=== PATIENT | female | born 2000 | race Caucasian/White ===

== ENCOUNTER 2025-02-19 12:25 | Emergency (ER) | payer MEDICAID, SELFPAY ==
[2025-02-19 12:27] VITALS: BMI 32.3
--- NOTE | 2025-02-19 12:53 | XR_ITS ---
Examination: Abdomen sonogram, Limited Date and time of exam: February 19, 2025 1308 hours INDICATIONS: Upper abdominal pain 2 years Technique: Real-time clinton scale transabdominal sonographic images of the upper abdomen obtained. Findings: Normal gallbladder. Common bile duct 0.6 cm no definite stones Pancreatic head 1.1 cm Liver 13.3 cm fatty infiltration Normal hepatopedal portal venous flow Patent IVC IMPRESSION: Abnormally enlarged common bile duct, consider MRCP follow-up
[2025-02-19 12:54] VITALS: BP 112/69; PULSE 69; RESP 18; TEMP 36.9; O2SAT 98
[2025-02-19 13:21] LABS: Collection Type, Urine Clean Catch
[2025-02-19 13:30] LABS: Basophils # (Auto) 0.0 Thou/mm3 (0.0-0.2); Basophils % (Auto) 0 % (0-2.5); Eosinophils # (Auto) 0.1 Thou/mm3 (0.0-0.5); Eosinophils % (Auto) 2 % (0-10); Hematocrit 40.0 % (36.0-46.0); Hemoglobin 14.1 g/dL (12.0-16.0); Immature Granulocytes Auto 0.02 Thou/mm3 (0.00-0.00); Lymphocytes # (Auto) 1.8 Thou/mm3 (1.0-4.8); Lymphocytes % (Auto) 23 % (10-50); Mean Corpuscular HGB Conc 35.3 g/dl (31.0-37.0); Mean Corpuscular Hemoglobin 29.7 pg (25.0-35.0); Mean Corpuscular Volume 84 fL (80-100); Monocytes # (Auto) 0.6 Thou/mm3 (0.0-0.8); Monocytes % (Auto) 8 % (0-12); Neutrophils # (Auto) 5.4 Thou/mm3 (1.8-7.7); Neutrophils % (Auto) 68 % (37-80); Nucleated Red Blood Cell # 0.00 Thou/mm3 (0.00-0.00); Nucleated Red Blood Cell % 0 /100 WBC (0); Platelet Count 310 Thou/mm3 (140-440); RDW Standard Deviation 37.9 fL (36.4-46.3); Red Blood Count 4.75 Miln/mm3 (4.00-5.20); White Blood Count 8.0 Thou/mm3 (3.6-11.0)
[2025-02-19 13:40] LABS: Bilirubin,Urine Negative (Negative); Blood,Urine Negative (Negative); Clarity,Urine Clear (Clear/Hazy); Color,Urine Lt-Yellow (Lt Yel-Yel); Glucose, Urine Negative (Negative); Ketones,Urine Negative (Negative); Leukocyte Esterase,Urine Negative (Negative); Nitrite,Urine Negative (Negative); PH,Urine 6.5 (5.0-7.0); Protein,Urine Negative (Neg - Trace); RBC,Urine 1 /hpf (0-3); Specific Gravity,Urine 1.023 (1.001-1.035); Squamous Epithelial Cell,Urine 2 /hpf (0-5); Urobilinogen,Urine Negative mg/dL (0.0-1.0); WBC,Urine 1 /hpf (0-5)
[2025-02-19 13:41] LABS: Anion Gap 9 (7-16); Aspartate Amino Transferase 22 U/L (0-34); BUN/Creatinine Ratio 9 Ratio (12-20); Bilirubin,Total 0.5 mg/dL (0.3-1.2); Blood Urea Nitrogen 7 mg/dL (9-23); Calcium 9.7 mg/dL (8.3-10.6); Carbon Dioxide 26.9 mMol/L (20.0-31.0); Chloride 104 mMol/L (98-107); Creatinine (Component) 0.8 mg/dL (0.6-1.3); Estimated Creatinine Clearance 106.4 mL/min (>60); Glucose 87 mg/dL (74-106); Osmolality,Calculated 276 (275-295); Potassium 4.1 mMol/L (3.4-5.1); Sodium 140 mMol/L (136-145); eGFR > 60 See Note
[2025-02-19 13:42] LABS: Alanine Aminotransferase 26 U/L (10-49); Albumin, Serum 4.5 gm/dL (3.5-5.0); Albumin/Globulin Ratio 1.9 (1.2-2.2); Alkaline Phosphatase 106 U/L (46-116); Calcium (Corrected) 9.7 mg/dL (8.5-10.1); Globulin 2.4 gm/dL (2.3-3.5); Lipase 25 U/L (12-53); Total Protein 6.9 gm/dL (5.7-8.2)
[2025-02-19 13:54] LABS: HCG Qualitative,Urine Negative
--- NOTE | 2025-02-19 14:15 | XR_ITS ---
Examination: CT abdomen with intravenous contrast CT pelvis with intravenous contrast 2-D coronal reconstructions 2-D sagittal reconstructions Date and time of exam:February 19, 2025, 1619 hours INDICATIONS: Generalized abdominal pain beginning 2 years ago CTDI: vol (mGy) 9.66 DLP: (mGycm) 531 Technique: Multiple axial sections of the abdomen and pelvis have been obtained. 64 slice high-resolution scanner used. 3 mm axial sections have been obtained, post intravenous injection 60 cc Isovue 370 2-D sagittal, coronal reconstructions obtained. Low dose protocols were performed. One or more of the following dose reduction techniques were used; automated exposure control, adjustment of the mA and/or KV according to patient size, use of iterative reconstruction technique. Findings: No focal liver or splenic lesion No gallstones No pancreatic or adrenal mass 3 mm left renal calculus, no hydronephrosis Fat-containing umbilical hernia Normal appendix Retroverted uterus with intrauterine device, one of the limbs of the intrauterine device projects at the surface of the uterus posteriorly image 185 Urinary bladder intact 2 mm calcified L5-S1 disc IMPRESSION: Recommend pelvic sonography follow-up to confirm abnormal position of the intrauterine device, partly in the myometrium 3 mm left renal calculus
--- NOTE | 2025-02-19 16:54 | EDNOTE_ITS ---
ED Abdominal Pain RME/HPI General Chief Complaint: Abdominal Pain Stated complaint: UPPER ABD PAIN W/ VOMITING, DIZZY, FATIGUED Time seen by provider: 02/19/25 12:32 Arrival date/time: 02/19/25 12:25 This is a case of 34-year-old female with history of gastritis came in in the emergency room due to bilateral upper abdominal pain on and off for 2 days associated with nausea vomiting dizziness and fatigue worsening of the symptoms this patient decided to sought consult here in the emergency room Limitations: no limitations Related Data Previous Rx's ?Medication ?Instructions ?Recorded famotidine 20 mg tablet (Pepcid) 20 mg PO BID 30 days #60 tabs 02/19/25 omeprazole 40 mg capsule,delayed 40 mg PO QDAY 30 days #30 caps 02/19/25 release ondansetron 4 mg disintegrating 4 mg PO Q8H PRN nausea and 02/19/25 tablet vomiting #20 tabs Allergies Allergy/AdvReac Type Severity Reaction Status Date / Time No Known Allergies Allergy Verified 02/19/25 12:29 Review of Systems Review of Systems Systems Reviewed: All systems reviewed, normal except as documented Constitutional Constitutional: Reports system reviewed and no additional complaints, except as documented, Reports as per HPI, Denies chills, Denies fatigue and Denies fever(s) Cardiovascular Cardiovascular: Reports system reviewed and no additional complaints, except as documented, Reports as per HPI, Denies chest pain, Denies dyspnea and Denies rapid heart rate Respiratory Respiratory: Reports system reviewed and no additional complaints, except as documented, Reports as per HPI, Denies cough and Denies dyspnea Gastrointestinal Gastrointestinal: Reports system reviewed and no additional complaints, except as documented, Reports abdominal pain, Denies diarrhea, Reports nausea and Reports vomiting Musculoskeletal Musculoskeletal: Reports system reviewed and no additional complaints, except as documented and Reports as per HPI Neurologic Neurologic: Reports system reviewed and no additional complaints, except as documented and Reports as per HPI Endocrine Endocrine: Denies fatigue Past Medical History Past Medical History CARDIAC: Negative Cardiac Disorders RESPIRATORY: Negative Asthma GENITOURINARY: Negative Renal Disease ENDOCRINE: Negative Diabetes Mellitus Type 2 HEMATOLOGIC: Negative Sickle Cell Disease Social History SMOKING STATUS: Former smoker ED Exam General Limitations: Present no limitations General appearance: Present alert, in no apparent distress and other (Patient is awake alert oriented not in distress nontoxic looking well-hydrated well- nourished) Head Head exam: Present atraumatic, normocephalic and normal inspection Eye Eye exam: Present normal appearance, PERRL and EOMI ENT ENT exam: Present normal exam, normal oropharynx and mucous membranes moist Neck Neck exam: Present normal inspection, full ROM and trachea midline Chest Chest inspection: Present normal inspection and symmetric chest wall rise; Absent tenderness Respiratory Respiratory exam: Present normal lung sounds bilaterally; Absent respiratory distress, wheezes, stridor, accessory muscle use or prolonged expiratory phase Cardiovascular Cardiovascular exam: Present regular rate, normal rhythm and normal heart sounds; Absent bradycardia, tachycardia, irregular rhythm, systolic murmur or diastolic murmur Abdominal Exam Abdominal exam: Present soft, tenderness (Mild tenderness on the both upper and left upper abdomen and epigastric area no CVA tenderness) and normal bowel sounds; Absent distention, guarding, rebound, rigidity, diminished bowel sounds, hyperactive bowel sounds, hypoactive bowel sounds, organomegaly, psoas sign, obturator sign, Natarajan's sign, Rovsing's sign, tenderness at McBurney's Point or hernia Abdominal tenderness: Present RUQ, LUQ, epigastrium and mild Extremities Exam Extremities exam: Present normal inspection and full ROM Back Exam Back exam: Present normal inspection and full ROM Neurological Exam Neurological exam: Present alert, oriented X3, CN II-XII intact, normal gait and reflexes normal; Absent motor sensory deficit Psychiatric Psychiatric exam: Present normal affect and normal mood Skin Skin exam: Present warm, dry, intact and normal color Course Quality Measures none Orders Category Date Time Status CT Screening NOW Care 02/19/25 14:[address] abdomen pelvis w con Stat Exams 02/19/25 14:15 Completed US gall bladder Stat Exams 02/19/25 12:53 Completed US pelvic complete Stat Exams 02/19/25 17:46 Completed Amylase Stat Lab 02/19/25 14:30 Received CBC Stat Lab 02/19/25 12:57 Completed Comprehensive Metabolic Panel Stat Lab 02/19/25 12:57 Completed HCG Qualitative,Urine Stat Lab 02/19/25 13:11 Completed Lipase Stat Lab 02/19/25 12:57 Completed Urinalysis Stat Lab 02/19/25 13:11 Completed Morphine Inj Med 02/19/25 17:44 Active 4 mg IVP Q30M PRN Ondansetron Inj [Zofran Inj] Med 02/19/25 17:44 Discontinued 4 mg IVP X1 ONE Pantoprazole Inj [Protonix Inj] Med 02/19/25 17:44 Discontinued 40 mg IVP X1 ONE Sodium Chloride 0.9% 1000 ml [Ns] 1,000 ml Med 02/19/25 17:44 Discontinued IV 999 mls/hr Vital Signs Vital signs: Vital Signs Temperature 98.5 F 02/19/25 12:54 Pulse Rate 69 02/19/25 12:54 Respiratory Rate 18 02/19/25 12:54 Blood Pressure 112/69 02/19/25 12:54 Pulse Oximetry (%) 98 02/19/25 12:54 Oxygen Delivery Method Room Air 02/19/25 12:54 Patient is afebrile not tachycardic not tachypneic BP stable not hypoxic oxygen saturation is 98% in room air Abdominal Pain MDM MDM Narrative MDM Narrative:: This is a case of 34-year-old female with history of gastritis came in in the emergency room due to bilateral upper abdominal pain on and off for 2 days associated with nausea vomiting dizziness and fatigue worsening of the symptoms this patient decided to sought consult here in the emergency room physical examination patient is awake alert oriented not in distress nontoxic looking vital signs stable BP stable not tachycardic not tachypneic not hypoxic and afebrile patient lung sound is clear no crackles no rales no retraction no stridor heart normal rate regular rhythm no murmur abdominal exam benign nonsurgical mild tenderness on both upper abdomen and epigastric area no guarding no rebound no rigidity negative psoas negative straight or negative Rovsing's negative McBurney's negative Natarajan sign negative CVA tenderness initially patient ultrasound of the gallbladder showed no gallstones but possible distended common bile duct suggesting MRCP I spoke to Dr. Fernandez ordered today to perform CT scan of the abdomen pelvis and the test were normal thus Dr. Fernandez at this time instructed that there is no indication to admit the patient patient will just follow-up with his clinic for further evaluation and treatment patient blood test showed no leukocytosis no anemia kidney and liver function is normal no electrolyte imbalance urinalysis is normal lipase normal patient CT scan showed a kidney stone and umbilical hernia and possible mild placement of the IUD ultrasound of the pelvic is also normal at this point patient was given a bolus of normal saline morphine Zofran and Protonix patient symptoms was resolved thus patient will be discharged home with stable condition patient was advised to see an OB sign hanger for her to check the placement of the IUD and to see urologist for kidney stone she is also well-informed for any worsening symptoms or any emergent concerns she will return in the emergency room immediately or call 911 Patient was discharged with comfortable condition walking with stable gait. Patient verbalized no further complains explained diagnosis and answered patient question. Patient is comfortable with the proposed management plan including the need to follow up with his/her primary care physician and any specialist if applicable Discussed patient for any urgent condition or worsening sx, He/She needed to go to emergency room immediately or call 911. Patient acknowledge the responsibility to follow up as instructed and to monitor her/his symptoms. For any persistence of the symptoms for more than 3-5 days return precaution advised. Discussed the result of the test and was given printed discharge instruction Patient data External records reviewed:: [facility] previous records Clinical information provided by:: patient Social determinants that could affect healthcare access:: none Patient has the following chronic illnesses:: None How is presenting disease/condition affected by chronic disease/condition?: no chronic disease Evaluation data The following diagnostics were reviewed and interpreted by me:: lab results and radiology exam(s) Lab and/or radiology exams considered but not ordered:: Reviewed Interpretation Summary: Reviewed Medications / Prescriptions Medications or Prescriptions considered but not ordered:: Given Medication administrations:: Medication Administration History Morphine Sulfate (Morphine Sulf Inj 10 Mg/Ml Vial) 4 mg IVP Q30M PRN PRN Reason: ABDOMINAL CRAMPING Stop: 02/22/25 17:43 Last Admin: 02/19/25 18:23 Dose: 4 mg Documented By: ARF Discontinued Medications Sodium Chloride (Ns) 1,000 mls @ 999 mls/hr IV .Q1H1M ONE Stop: 02/19/25 18:44 Last Infusion: 02/19/25 19:36 Dose: Infused Documented By: Admin: 02/19/25 18:22 Dose: 999 mls/hr Documented By: ARF Ondansetron HCl (Ondansetron Inj 2 Mg/Ml Inj 2 Ml) 4 mg IVP X1 ONE; Protocol Stop: 02/19/25 17:45 Last Admin: 02/19/25 18:23 Dose: 4 mg Documented By: ARF Pantoprazole Sodium (Pantoprazole Inj 40 Mg Vial) 40 mg IVP X1 ONE Stop: 02/19/25 17:45 Last Admin: 02/19/25 18:23 Dose: 40 mg Documented By: ARF Given Consultations Consultation(s) initiated? (list below): Yes Consultation #1 (Physician, Specialty, Details): Dr. Fernandez CT scan was ordered and was normal since the vital signs is normal patient is pain-free patient is not jaundiced no nausea no vomiting patient CT scan is normal patient will follow-up with his clinic for reevaluation and p ossible MRCP as an outpatient Diagnosis Differential diagnosis abdominal pain: abdominal pain, acute appendicitis, calculus of kidney, diverticulitis, gastroenteritis, pancreatitis and other (Cholelithiasis nephrolithiasis) Most likely diagnosis given after review of the tests above:: Nephrolithiasis umbilical hernia Admission Indicated Admission indicated?: not indicated Explain why admission is indicated or not indicated:: Not indicated Admission Request Was there a request for admission?: No Disposition Plan Disposition Plan: Discharge Discharge Attestation Discharge Attestation: The patient and all family members were given an opportunity to ask questions and understood the discharge instructions. Discharge instructions specifically effects, indications for sooner follow up or return to the emergency department, and the expected course of current diagnosis. Patient condition: Stable Discharge Plan Plan Patient Disposition: HOME (Self Care) Patient condition on transfer: Stable Prescriptions/Referrals Prescriptions/Med Rec: New omeprazole 40 mg capsule,delayed release(DR/EC) 40 mg PO QDAY 30 Days Qty: 30 0RF famotidine [Pepcid] 20 mg tablet 20 mg PO BID 30 Days Qty: 60 0RF ondansetron 4 mg tablet,disintegrating 4 mg PO Q8H PRN (Reason: nausea and vomiting) Qty: 20 0RF Referrals: Etelvina Siddiqui FNP-C [Primary Care Provider] - In 1 week Problem List Clinical Impression: Abdominal pain, Nephrolithiasis, Gastritis, Hernia, umbilical Patient/Caregiver Discharge Instructions Education Materials: Abdominal Pain, Kidney Stones Your Evaluation, ED Gastritis (Adult), ED Hernia (Adult) Additional Instructions: Follow-up with your primary care physician in 2 days for reevaluation and to be referred to marketing regional consultant for further evaluation and treatment of your gastritis and possible further evaluation of your common bile duct possible MRCP and further evaluation of your umbilical hernia you need also to be referred to urologist for further evaluation and treatment of your kidney stone you need also to see [facility] for your placement of your IUD worsening symptoms persistent recurrent of the symptoms return to the emergency room immediately or call 911 increase water intake keep hydrated spatulate Gatorade for every vomiting avoid spicy food avoid skipping of meals avoid fat fried high cholesterol food avoid coffee soda alcohol Print Language: Latvian Stand Alone Forms: [employer] Award Info., Patient Portal Info Letter PA/EQUIPMENT OPERATION INSTRUCTOR Supervising Physician PA/EQUIPMENT OPERATION INSTRUCTOR Supervising Physician: DR fay
[2025-02-19 17:08] VITALS: BP 109/71; PULSE 68; RESP 18; TEMP 37; O2SAT 99
--- NOTE | 2025-02-19 17:46 | XR_ITS ---
Examination: Pelvic ultrasound, transabdominal, complete Technique: Transabdominal ultrasound of the pelvis performed using grayscale imaging Date and time of exam: February 19, 2021, 1933 hours INDICATIONS: Vaginal bleeding and pelvic cramping today FINDINGS: Uterus 13.9 cm endometrial stipe 0.3 cm No uterine mass or intrauterine gestation Right ovary obscured by bowel gas Left ovary 2.7 cm arterial flow IMPRESSION: No uterine mass or intrauterine gestation
[2025-02-19] MEDS: SODIUM CHLORIDE 0.9% 1000 ML 1,000 ML 999 ML IV (18:22)
[2025-02-19] MEDS: ONDANSETRON INJ 2 MG/ML INJ 2 ML 4 MG IVP (18:23)
[2025-02-19] MEDS: MORPHINE SULF INJ 10 MG/ML VIAL 4 MG IVP (18:23)
[2025-02-19 22:16] VITALS: RESP 18; O2SAT 99
[2025-02-21 07:35] LABS: Amylase 84 U/L (30-118)
== END 2025-02-19 22:17 | disposition home or self-care (01) ==
PROVIDERS: Nurse Practitioner Family; Emergency Provider Emergency Medicine
DX: K29.70 Gastritis, unspecified, without bleeding (principal); N20.0 Calculus of kidney; K42.9 Umbilical hernia without obstruction or gangrene
CPT/HCPCS: 36415; 74177; 76705; 76856; 80053; 81001; 81025; 82150; 83690; 85025; 96361; 96374; 96375; 99284; A4649; J2270; J2405; J2470; J7030; Q9967

== ENCOUNTER 2025-06-08 08:47 | Emergency (ER) | payer MEDICAID, SELFPAY ==
[2025-06-08 08:48] VITALS: BP 135/89; PULSE 84; RESP 20; TEMP 36.6; O2SAT 98; BMI 34.4
[2025-06-08 08:56] VITALS: PULSE 72; RESP 20; O2SAT 98
--- NOTE | 2025-06-08 09:09 | EKG_ITS ---
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
--- NOTE | 2025-06-08 09:11 | XR_ITS ---
Examination: CT abdomen and pelvis without contrast. Coronal 3-D reconstructions. Sagittal 2-D reconstructions. Date and time of exam: 06/08/2025 at 12:56 p.m. INDICATION: Generalized abdominal pain with nausea COMPARISON: CT abdomen and pelvis 02/19/2025 CTDI: vol (mGy): 10.7 DLP: (mGycm): 609 Technique: Axial images of the abdomen have been obtained, 3 mm slice thickness Intravenous contrast material has not been administered. Low dose protocols were performed. One or more of the following dose reduction techniques were used; automated exposure control, adjustment of the mA and/or KV according to patient size, use of iterative reconstruction technique. Findings: FINDINGS: Lack of intravenous contrast limits evaluation of solid organs, vasculature, and lymph nodes. Lower thorax: No pleural effusions. No airspace consolidation. Minimal bibasilar dependent subsegmental atelectasis. Heart size is within normal limits. Liver: No significant hepatic enlargement. No gross liver mass. Biliary system: No calcified gallstones or findings concerning for acute cholecystitis or biliary ductal obstruction. Spleen: Within normal limits of size. No discrete mass. Pancreas: No contour deforming mass or overt main pancreatic duct dilatation. No evidence for acute inflammation. Adrenal glands: No significant findings. Kidneys: No contour-deforming solid mass. No calculi or hydronephrosis. Bladder: Suboptimal assessment due to under distention but no calculus is seen. Pelvic organs: Retroverted uterus with malpositioned IUD, penetrating the myometrium superiorly and inferiorly along the midline, most pronounced inferiorly with the IUD arm projecting into the adjacent fat. No regional fluid collection. Unremarkable ovaries. Bowel/Peritoneal cavity: Limited assessment without IV and oral contrast as well as segments of underdistention. No contour deforming mass. Nonspecific mild dilatation of small bowel in the left upper quadrant with gas-liquid levels. No evidence for appendicitis. No ascites or free air. No concerning peritoneal thickening. Lymph nodes/retroperitoneum: No pathologically enlarged lymph nodes or other masses. No hematoma or other abnormal collections. Vessels: Normal caliber abdominal aorta. Compression of the left common iliac vein between the right common iliac artery and underlying vertebra noted, compatible with May-Thurner syndrome. Abdominal/Pelvic wall: Very small fat-containing umbilical hernia noted. Musculoskeletal: No recent fractures or tumor suspicious lytic or blastic lesions. Mild dextroscoliosis. IMPRESSION: Nonspecific mild small bowel distention with gas-liquid levels in the left upper quadrant could be due to a mild enteritis or gastroenteritis. No evidence for appendicitis, colitis or bowel obstruction. Retroverted uterus with malpositioned IUD, penetrating the myometrium superiorly and inferiorly along the midline, most pronounced inferiorly with the IUD arm projecting into the adjacent fat. No regional fluid collection. May-Thurner syndrome.
[2025-06-08 09:20] LABS: Basophils # (Auto) 0.0 Thou/mm3 (0.0-0.2); Basophils % (Auto) 0 % (0-2.5); Eosinophils # (Auto) 0.3 Thou/mm3 (0.0-0.5); Eosinophils % (Auto) 5 % (0-10); Hematocrit 41.3 % (36.0-46.0); Hemoglobin 14.2 g/dL (12.0-16.0); Immature Granulocytes Auto 0.02 Thou/mm3 (0.00-0.00); Lymphocytes # (Auto) 2.0 Thou/mm3 (1.0-4.8); Lymphocytes % (Auto) 30 % (10-50); Mean Corpuscular HGB Conc 34.4 g/dl (31.0-37.0); Mean Corpuscular Hemoglobin 29.6 pg (25.0-35.0); Mean Corpuscular Volume 86 fL (80-100); Monocytes # (Auto) 0.5 Thou/mm3 (0.0-0.8); Monocytes % (Auto) 8 % (0-12); Neutrophils # (Auto) 3.8 Thou/mm3 (1.8-7.7); Neutrophils % (Auto) 57 % (37-80); Nucleated Red Blood Cell # 0.00 Thou/mm3 (0.00-0.00); Nucleated Red Blood Cell % 0 /100 WBC (0); Platelet Count 310 Thou/mm3 (140-440); RDW Standard Deviation 39.7 fL (36.4-46.3); Red Blood Count 4.79 Miln/mm3 (4.00-5.20); White Blood Count 6.7 Thou/mm3 (3.6-11.0)
[2025-06-08 09:32] LABS: INR 1.0 (0.9-1.3); Partial Thromboplastin Time 30.2 Seconds (22.0-36.0); Prothrombin Time 11.1 Seconds (9.0-12.2)
[2025-06-08 09:41] LABS: Alanine Aminotransferase 14 U/L (10-49); Albumin, Serum 5.0 gm/dL (3.5-5.0); Albumin/Globulin Ratio 2.6 (1.2-2.2); Alkaline Phosphatase 107 U/L (46-116); Anion Gap 9 (7-16); Aspartate Amino Transferase 19 U/L (0-34); BUN/Creatinine Ratio 12 Ratio (12-20); Bilirubin,Total 0.6 mg/dL (0.3-1.2); Blood Urea Nitrogen 11 mg/dL (9-23); Calcium 9.1 mg/dL (8.3-10.6); Calcium (Corrected) 9.1 mg/dL (8.5-10.1); Carbon Dioxide 25.8 mMol/L (20.0-31.0); Chloride 104 mMol/L (98-107); Creatinine (Component) 0.9 mg/dL (0.6-1.3); Estimated Creatinine Clearance 97.6 mL/min (>60); Globulin 1.9 gm/dL (2.3-3.5); Glucose 96 mg/dL (74-106); Osmolality,Calculated 276 (275-295); Potassium 3.7 mMol/L (3.4-5.1); Sodium 139 mMol/L (136-145); Total Protein 6.9 gm/dL (5.7-8.2); eGFR > 60 See Note
[2025-06-08] MEDS: MORPHINE SULF INJ 4 MG/ML VIAL IVP (09:42)
[2025-06-08] MEDS: ONDANSETRON INJ 2 MG/ML INJ 2 ML 4 MG IVP (09:42)
[2025-06-08] MEDS: KETOROLAC INJ 30 MG/ML VIAL 15 MG IVP (09:43)
[2025-06-08] MEDS: SODIUM CHLORIDE 0.9% 1000 ML 1,000 ML 999 ML IV (09:43)
[2025-06-08 09:44] VITALS: BP 117/83; PULSE 55; PULSE 59; RESP 16; O2SAT 98
[2025-06-08 11:17] VITALS: BP 104/65; PULSE 69; RESP 19; TEMP 36.9; O2SAT 99
--- NOTE | 2025-06-08 11:46 | PD.EDABDPN ---
ED Abdominal Pain RME/HPI General Chief Complaint: Abdominal Pain Stated complaint: ABDOMINAL PAIN Time seen by provider: 06/08/25 08:52 Arrival date/time: 06/08/25 08:47 Limitations: no limitations RME / HPI RME / HPI narrative: 24 year old female with history of gastritis and kidney stones otherwise no other stated medical history presents to the ED BIBA from home for evaluation of abdominal pain beginning at 08:00 AM today. Described as aching in sensation that is located most to the left flank area, rating 9/10 in severity. No nausea or vomiting reported. Denies fevers, chills, chest pain, cough, diarrhea, or urinary symptoms. Related Data Previous Rx's ?Medication ?Instructions ?Recorded ondansetron 4 mg disintegrating 4 mg PO Q8H PRN nausea and 02/19/25 tablet vomiting #20 tabs Allergies Allergy/AdvReac Type Severity Reaction Status Date / Time No Known Allergies Allergy Verified 02/19/25 12:29 Review of Systems Review of Systems Systems Reviewed: All systems reviewed, normal except as documented Past Medical History Past Medical History GASTROINTESTINAL: Positive Gastrointestinal Disorders GENITOURINARY: Positive Kidney Stones Social History SMOKING STATUS: Never smoker ED Exam General Limitations: Present no limitations General appearance: Present alert, obese and other (slightly tearful ) Head Head exam: Present atraumatic Eye Eye exam: Present normal appearance, PERRL and EOMI ENT ENT exam: Present normal exam, normal oropharynx and mucous membranes moist Neck Neck exam: Present normal inspection, full ROM and trachea midline Chest Chest inspection: Present normal inspection and symmetric chest wall rise Respiratory Respiratory exam: Present normal lung sounds bilaterally Cardiovascular Cardiovascular exam: Present regular rate, normal rhythm and normal heart sounds Abdominal Exam Abdominal exam: Present soft and normal bowel sounds; Absent distention, tenderness, guarding, rebound, rigidity or mass Extremities Exam Extremities exam: Present normal inspection and full ROM Back Exam Back exam: Present normal inspection and full ROM Neurological Exam Neurological exam: Present alert, oriented X3 and CN II-XII intact Psychiatric Psychiatric exam: Present other (tearful ) Skin Skin exam: Present warm, dry, intact and normal color Course Quality Measures none Orders Category Date Time Status Sales/Marketing NOW Care 06/08/25 09:09 Completed Continuous Pulse Oximetry NOW Care 06/08/25 09:09 Completed EKG (ED ONLY) *Do not use* NOW Care 06/08/25 09:09 Completed Insert IV NOW Care 06/08/25 09:[address] abdomen pelvis wo con Stat Exams 06/08/25 09:11 Completed EKG (ED Only) Stat Exams 06/08/25 09:09 Draft CBC Stat Lab 06/08/25 08:36 Completed Comprehensive Metabolic Panel Stat Lab 06/08/25 08:36 Completed HCG Qualitative,Urine Stat Lab 06/08/25 12:37 Completed HCG,Qualitative Serum Stat Lab 06/08/25 08:56 Completed Partial Thromboplastin Time Stat Lab 06/08/25 08:36 Completed Prothrombin Time with INR Stat Lab 06/08/25 08:36 Completed Urinalysis, C/S if Indicated Stat Lab 06/08/25 12:37 Completed Ketorolac Inj [Toradol Inj] Med 06/08/25 09:12 Discontinued 15 mg IVP X1 ONE Morphine* Inj Med 06/08/25 09:06 Discontinued 4 mg IVP X1 ONE Ondansetron Inj [Zofran Inj] Med 06/08/25 09:06 Discontinued 4 mg IVP X1 ONE Sodium Chloride 0.9% 1000 ml [Ns] 1,000 ml Med 06/08/25 09:06 Discontinued IV 999 mls/hr Vital Signs Vital signs: Vital Signs Temperature 97.8 F 06/08/25 08:48 Pulse Rate 84 06/08/25 08:48 Respiratory Rate 20 06/08/25 08:48 Blood Pressure 135/89 H 06/08/25 08:48 Pulse Oximetry (%) 98 06/08/25 08:48 Oxygen Delivery Method Room Air 06/08/25 08:48 Pulse ox is 98% on room air which is adequate. Abdominal Pain MDM MDM Narrative MDM Narrative:: Raven Babin am scribing for and in the presence of Dr. Olsen. Patient data External records reviewed:: [facility] previous records and EMS form Clinical information provided by:: patient and EMS Social determinants that could affect healthcare access:: none Patient has the following chronic illnesses:: Gastritis Kidney stones How is presenting disease/condition affected by chronic disease/condition?: exacerbated by Evaluation data The following diagnostics were reviewed and interpreted by me:: lab results, radiology exam(s) and EKG tracing(s) (EKG @ 11:41 AM. Normal sinus rhythm, rate 62, no STEMI. ) Lab and/or radiology exams considered but not ordered:: None Interpretation Summary: Ordering Physician: Xu Olsen MD Date of Service: 06/08/25 Procedure(s): CT abdomen pelvis wo con Accession Number(s): [id number] cc: Xu Olsen MD; Bar Navas MD; Kenyon Lyle DO~ Examination: CT abdomen and pelvis without contrast. Coronal 3-D reconstructions. Sagittal 2-D reconstructions. Date and time of exam: 06/08/2025 at 12:56 p.m. INDICATION: Generalized abdominal pain with nausea COMPARISON: CT abdomen and pelvis 02/19/2025 CTDI: vol (mGy): 10.7 DLP: (mGycm): 609 Technique: Axial images of the abdomen have been obtained, 3 mm slice thickness Intravenous contrast material has not been administered. Low dose protocols were performed. One or more of the following dose reduction techniques were used; automated exposure control, adjustment of the mA and/or KV according to patient size, use of iterative reconstruction technique. Findings: FINDINGS: Lack of intravenous contrast limits evaluation of solid organs, vasculature, and lymph nodes. Lower thorax: No pleural effusions. No airspace consolidation. Minimal bibasilar dependent subsegmental atelectasis. Heart size is within normal limits. Liver: No significant hepatic enlargement. No gross liver mass. Biliary system: No calcified gallstones or findings concerning for acute cholecystitis or biliary ductal obstruction. Spleen: Within normal limits of size. No discrete mass. Pancreas: No contour deforming mass or overt main pancreatic duct dilatation. No evidence for acute inflammation. Adrenal glands: No significant findings. Kidneys: No contour-deforming solid mass. No calculi or hydronephrosis. Bladder: Suboptimal assessment due to under distention but no calculus is seen. Pelvic organs: Retroverted uterus with malpositioned IUD, penetrating the myometrium superiorly and inferiorly along the midline, most pronounced inferiorly with the IUD arm projecting into the adjacent fat. No regional fluid collection. Unremarkable ovaries. Bowel/Peritoneal cavity: Limited assessment without IV and oral contrast as well as segments of underdistention. No contour deforming mass. Nonspecific mild dilatation of small bowel in the left upper quadrant with gas-liquid levels. No evidence for appendicitis. No ascites or free air. No concerning peritoneal thickening. Lymph nodes/retroperitoneum: No pathologically enlarged lymph nodes or other masses. No hematoma or other abnormal collections. Vessels: Normal caliber abdominal aorta. Compression of the left common iliac vein between the right common iliac artery and underlying vertebra noted, compatible with May-Thurner syndrome. Abdominal/Pelvic wall: Very small fat-containing umbilical hernia noted. Musculoskeletal: No recent fractures or tumor suspicious lytic or blastic lesions. Mild dextroscoliosis. IMPRESSION: Nonspecific mild small bowel distention with gas-liquid levels in the left upper quadrant could be due to a mild enteritis or gastroenteritis. No evidence for appendicitis, colitis or bowel obstruction. Retroverted uterus with malpositioned IUD, penetrating the myometrium superiorly and inferiorly along the midline, most pronounced inferiorly with the IUD arm projecting into the adjacent fat. No regional fluid collection. May-Thurner syndrome. Dictated By: Kenyon Lyle DO Signed By: <Electronically signed by Kenyon Lyle DO in [place]> 06/08/25 1402 Medications / Prescriptions Medications or Prescriptions considered but not ordered:: None Medication administrations:: Medication Administration History Discontinued Medications Sodium Chloride (Ns) 1,000 mls @ 999 mls/hr IV .Q1H1M ONE Stop: 06/08/25 10:06 Last Infusion: 06/08/25 10:44 Dose: Infused Documented By: Admin: 06/08/25 09:43 Dose: 999 mls/hr Documented By: VERONICA Ketorolac Tromethamine (Ketorolac Inj 30 Mg/Ml Vial) 15 mg IVP X1 ONE Stop: 06/08/25 09:13 Last Admin: 06/08/25 09:43 Dose: 15 mg Documented By: VERONICA Morphine Sulfate (Morphine Sulf Inj 4 Mg/Ml Vial) 4 mg IVP X1 ONE Stop: 06/08/25 09:07 Last Admin: 06/08/25 09:42 Dose: 4 mg Documented By: VERONICA Ondansetron HCl (Ondansetron Inj 2 Mg/Ml Inj 2 Ml) 4 mg IVP X1 ONE; Protocol Stop: 06/08/25 09:07 Last Admin: 06/08/25 09:42 Dose: 4 mg Documented By: VERONICA See above Consultations Consultation(s) initiated? (list below): No Diagnosis Differential diagnosis abdominal pain: abdominal pain, calculus of kidney, gastroenteritis and other (gastritis ) Most likely diagnosis given after review of the tests above:: Ileus Admission Indicated Admission indicated?: not indicated Explain why admission is indicated or not indicated:: With no condition needing emergent intervention, there was no indication for admission. Admission Request Was there a request for admission?: No Disposition Plan Disposition Plan: Discharge Discharge Attestation Discharge Attestation: The patient and all family members were given an opportunity to ask questions and understood the discharge instructions. Discharge instructions specifically effects, indications for sooner follow up or return to the emergency department, and the expected course of current diagnosis. Patient condition: Stable Discharge Plan Plan Patient Disposition: HOME (Self Care) Patient condition on transfer: Stable Prescriptions/Referrals Prescriptions/Med Rec: No Action ondansetron 4 mg tablet,disintegrating 4 mg PO Q8H PRN (Reason: nausea and vomiting) Qty: 20 0RF Referrals: Bar Navas MD [Primary Care Provider, Family Practice] - In 1 week Problem List Clinical Impression: Ileus, Malpositioned intrauterine device (IUD) Patient/Caregiver Discharge Instructions Discharge Activity: activity as tolerated Education Materials: Ileus Additional Instructions: Liquid diet for 1 day and advance your diet as tolerated. Take Zofran as needed for nausea. Please get a referral for [facility] to evaluate your IUD that is malpositioned. Print Language: [place] Citizen Stand Alone Forms: [employer] Info., Patient Portal Info Letter
[2025-06-08 12:39] LABS: HCG,Qualitative Serum Negative
[2025-06-08 12:45] LABS: Collection Type, Urine Clean Catch
[2025-06-08 12:51] LABS: HCG Qualitative,Urine Negative
[2025-06-08 13:06] LABS: Bacteria,Urine Rare; Bilirubin,Urine Negative (Negative); Blood,Urine Negative (Negative); Clarity,Urine Clear (Clear/Hazy); Color,Urine Colorless (Lt Yel-Yel); Culture Indicated,Urine Not Indicated; Glucose, Urine Negative (Negative); Ketones,Urine 1+ (Negative); Leukocyte Esterase,Urine Negative (Negative); Nitrite,Urine Negative (Negative); PH,Urine 6.0 (5.0-7.0); Protein,Urine Negative (Neg - Trace); RBC,Urine < 1 /hpf (0-3); Specific Gravity,Urine 1.009 (1.001-1.035); Squamous Epithelial Cell,Urine 2 /hpf (0-5); Urobilinogen,Urine Negative mg/dL (0.0-1.0); WBC,Urine 2 /hpf (0-5)
[2025-06-08 13:17] VITALS: BP 111/74; PULSE 65; RESP 16; TEMP 36.7; O2SAT 95
[2025-06-08 15:18] VITALS: BP 96/65; PULSE 68; RESP 14; O2SAT 100
== END 2025-06-08 15:20 | disposition home or self-care (01) ==
PROVIDERS: Emergency Provider Family Medicine; PCP Family Medicine
DX: K56.7 Ileus, unspecified (principal); N85.4 Malposition of uterus; T83.32XA Displacement of intrauterine contraceptive device, initial encounter; Y76.2 Prosthetic and other implants, materials and accessory obstetric and gynecological devices associated with adverse incidents
CPT/HCPCS: 36415; 74176; 80053; 81001; 81025; 84703; 85025; 85610; 85730; 93005; 96361; 96374; 96375; 99284; J1885; J2270; J2405; J7030

== ENCOUNTER 2025-06-11 09:26 | Emergency (ER) | payer MEDICAID, SELFPAY ==
[2025-06-11 09:27] VITALS: BMI 32.9
[2025-06-11 09:39] VITALS: BP 129/84; PULSE 69; RESP 18; TEMP 36.6; O2SAT 100
--- NOTE | 2025-06-11 09:52 | EDNOTE_ITS ---
ED Abdominal Pain RME/HPI General Chief Complaint: Abdominal Pain Stated complaint: abd pain Time seen by provider: 06/11/25 09:52 Arrival date/time: 06/11/25 09:26 RME / HPI RME / HPI narrative: 24 year old female with history of umbilical hernia, kidney stone, gastritis presents to the ED for evaluation of worsening left lower abdominal pain and pelvic pain beginning 3 days ago. Pain described as aching in sensation, rating as moderate. Accompanied by sweats, chills, nausea, constipation. States her last bowel movement was ~ 1 week ago and noted to not be passing any gas today. Reportedly was evaluated here 3 days for similar pain; was diagnosed with Ileus and malpositioned IUD and discharged home. States her pain has not improved and today was aggravated with eating soup and drinking water, prompting return to the ED. Patient mentioned since her last ED visit she has an appointment scheduled at [facility] regarding the IUD. Related Data Previous Rx's ?Medication ?Instructions ?Recorded ondansetron 4 mg disintegrating 4 mg PO Q8H PRN nausea and 02/19/25 tablet vomiting #20 tabs ibuprofen 600 mg tablet 600 mg PO Q6H PRN pain #30 t abs 06/11/25 ondansetron 4 mg disintegrating 4 mg PO Q8H PRN nausea and 06/11/25 tablet vomiting #14 tabs Allergies Allergy/AdvReac Type Severity Reaction Status Date / Time No Known Allergies Allergy Verified 02/19/25 12:29 Review of Systems Review of Systems Systems Reviewed: All systems reviewed, normal except as documented Past Medical History Past Medical History GASTROINTESTINAL: Positive Gastrointestinal Disorders GENITOURINARY: Positive Kidney Stones Social History SMOKING STATUS: Never smoker ED Exam Narrative Physical exam: GENERAL APPEARANCE: alert and oriented x 4, well-developed, well-nourished HEENT: Normocephalic, atraumatic; pupils equal, round, reactive to light; EOMI; mucous membranes pink, moist; oropharynx clear NECK: Supple LUNGS: CTABL; no wheezes, no rales, no rhonchi HEART: Regular rate, regular rhythm; normal S1, S2; no murmurs ABDOMEN: non distended; normal BS; soft, left lower quadrant tenderness, no guarding, no rebound; no masses, no organomegaly, no hernia EXTREMITIES: atraumatic; no edema NEUROLOGIC: awake; alert and oriented x4; cranial nerves II-XII grossly intact; no focal sensory or motor deficits PSYCHIATRIC: appropriate mood and affect SKIN: warm, dry, normal color; no rashes Course Course Course Narrative: 1220: I spoke with on-call [facility] Dr. Calderon. Discussed patients PMHx, HPI, ED course, exam findings, labs, and radiology results. She recommends patient fol low up in Dr. Canada's office for further treatment of the IUD. 1240: Patient remains clinically stable throughout the emergency department visit. States her pain improved after pain medication though states she still has some discomfort to the left lower quadrant. We reviewed all the results, analysis, and treatment plans. Patient was made aware of consultation with OBGYN Dr. Calderon and her recommendations for patient to follow-up in Dr. Canada's office. Patient is amenable to discharge. Strict return precautions were outlined. Quality Measures none Orders Category Date Time Status XR abdomen series w chest 1V Stat Exams 06/11/25 09:58 Completed CBC Stat Lab 06/11/25 10:34 Completed Comprehensive Metabolic Panel Stat Lab 06/11/25 10:34 Completed Lactate (Lactic Acid) Stat Lab 06/11/25 10:34 Completed Lipase Stat Lab 06/11/25 10:34 Completed Magnesium Stat Lab 06/11/25 10:34 Completed Troponin I Stat Lab 06/11/25 10:34 Completed UA, C/S IF [Urinalysis, C/S if Indicated] Stat Lab 06/11/25 10:30 Completed Ketorolac Inj [Toradol Inj] Med 06/11/25 09:58 Discontinued 30 mg IM X1 ONE Ondansetron Odt [Zofran Odt] Med 06/11/25 09:58 Discontinued 4 mg PO X1 ONE Vital Signs Vital signs: Vital Signs Temperature 97.8 F 06/11/25 09:39 Pulse Rate 69 06/11/25 09:39 Respiratory Rate 18 06/11/25 09:39 Blood Pressure 129/84 06/11/25 09:39 Pulse Oximetry (%) 100 06/11/25 09:39 Oxygen Delivery Method Room Air 06/11/25 09:39 Pulse ox is 100% on room air which is adequate. Abdominal Pain MDM MDM Narrative MDM Narrative:: Raven Babin am scribing for and in the presence of Dr. Melgar. Patient data External records reviewed:: [facility] previous records Clinical information provided by:: patient Social determinants that could affect healthcare access:: none Patient has the following chronic illnesses:: umbilical hernia, kidney stone, gastritis How is presenting disease/condition affected by chronic disease/condition?: exacerbated by Evaluation data The following diagnostics were reviewed and interpreted by me:: lab results and radiology exam(s) Lab and/or radiology exams considered but not ordered:: None Interpretation Summary: Ordering Physician: Amberly Melgar MD Date of Service: 06/11/25 Procedure(s): XR abdomen series w chest 1V Accession Number(s): [id number] cc: Pasquale Kohli MD; Amberly Melgar MD~ EXAMINATION: Abdominal series 3 views including upright PA chest TECHNIQUE: Upright PA chest, AP upright AP supine abdomen total 3 views Date and time: June 11, 2025, 11:00 a.m. INDICATIONS: Left side abdominal pain beginning 1 week ago. FINDINGS: Normal heart size Lungs are clear. Nonobstructive bowel gas pattern. No free air. No renal or ureteral calculi IMPRESSION: Nonobstructive bowel gas pattern Dictated By: Pasquale Kohli MD Signed By: <Electronically signed by Pasquale Kohli MD in [place]> 06/11/25 1130 Medications / Prescriptions Medications or Prescriptions considered but not ordered:: None Medication administrations:: Medication Administration History Discontinued Medications Ketorolac Tromethamine (Ketorolac Inj 30 Mg/Ml Vial) 30 mg IM X1 ONE Stop: 06/11/25 09:59 Last Admin: 06/11/25 10:31 Dose: 30 mg Documented By: ARF Ondansetron HCl (Ondansetron Odt 4 Mg Tabrap) 4 mg PO X1 ONE; Protocol Stop: 06/11/25 09:59 Last Admin: 06/11/25 10:32 Dose: 4 mg Documented By: ARF See above Consultations Consultation(s) initiated? (list below): Yes Consultation #1 (Physician, Specialty, Details): See course Diagnosis Differential diagnosis abdominal pain: abdominal pain, calculus of kidney, constipation, endometriosis and other (UTI ) Most likely diagnosis given after review of the tests above:: Malpositioned IUD Abdominal pain Admission Indicated Admission indicated?: not indicated Explain why admission is indicated or not indicated:: With no condition needing emergent intervention, there was no indication for admission. Admission Request Was there a request for admission?: No Disposition Plan Disposition Plan: Discharge Discharge Attestation Discharge Attestation: The patient and all family members were given an opportunity to ask questions and understood the discharge instructions. Discharge instructions specifically effects, indications for sooner follow up or return to the emergency department, and the expected course of current diagnosis. Patient condition: Stable Discharge Plan Plan Patient Disposition: HOME (Self Care) Prescriptions/Referrals Prescriptions/Med Rec: No Action ondansetron 4 mg tablet,disintegrating 4 mg PO Q8H PRN (Reason: nausea and vomiting) Qty: 20 0RF Problem List Clinical Impression: Malpositioned intrauterine device (IUD), Abdominal pain Patient/Caregiver Discharge Instructions Education Materials: ED Abdominal Pain Unkn Cause Fem Print Language: [place] Stand Alone Forms: [employer] Info., Patient Portal Info Letter
--- NOTE | 2025-06-11 09:58 | XR_ITS ---
EXAMINATION: Abdominal series 3 views including upright PA chest TECHNIQUE: Upright PA chest, AP upright AP supine abdomen total 3 views Date and time: June 11, 2025, 11:00 a.m. INDICATIONS: Left side abdominal pain beginning 1 week ago. FINDINGS: Normal heart size Lungs are clear. Nonobstructive bowel gas pattern. No free air. No renal or ureteral calculi IMPRESSION: Nonobstructive bowel gas pattern
[2025-06-11] MEDS: KETOROLAC INJ 30 MG/ML VIAL IM (10:31)
[2025-06-11] MEDS: ONDANSETRON ODT 4 MG TABRAP PO (10:32)
[2025-06-11 10:39] LABS: Collection Type, Urine Clean Catch
[2025-06-11 10:40] LABS: Lactate (Lactic Acid) 1.7 mMol/L (0.4-2.0)
[2025-06-11 10:41] LABS: Basophils # (Auto) 0.0 Thou/mm3 (0.0-0.2); Basophils % (Auto) 0 % (0-2.5); Eosinophils # (Auto) 0.0 Thou/mm3 (0.0-0.5); Eosinophils % (Auto) 0 % (0-10); Hematocrit 41.8 % (36.0-46.0); Hemoglobin 14.1 g/dL (12.0-16.0); Immature Granulocytes Auto 0.03 Thou/mm3 (0.00-0.00); Lymphocytes # (Auto) 0.8 Thou/mm3 (1.0-4.8); Lymphocytes % (Auto) 9 % (10-50); Mean Corpuscular HGB Conc 33.7 g/dl (31.0-37.0); Mean Corpuscular Hemoglobin 29.1 pg (25.0-35.0); Mean Corpuscular Volume 86 fL (80-100); Monocytes # (Auto) 0.6 Thou/mm3 (0.0-0.8); Monocytes % (Auto) 7 % (0-12); Neutrophils # (Auto) 7.8 Thou/mm3 (1.8-7.7); Neutrophils % (Auto) 84 % (37-80); Nucleated Red Blood Cell # 0.00 Thou/mm3 (0.00-0.00); Nucleated Red Blood Cell % 0 /100 WBC (0); Platelet Count 262 Thou/mm3 (140-440); RDW Standard Deviation 39.7 fL (36.4-46.3); Red Blood Count 4.85 Miln/mm3 (4.00-5.20); White Blood Count 9.4 Thou/mm3 (3.6-11.0)
[2025-06-11 11:11] LABS: Alanine Aminotransferase 16 U/L (10-49); Albumin, Serum 5.1 gm/dL (3.5-5.0); Albumin/Globulin Ratio 2.4 (1.2-2.2); Alkaline Phosphatase 111 U/L (46-116); Anion Gap 10 (7-16); Aspartate Amino Transferase 19 U/L (0-34); BUN/Creatinine Ratio 8 Ratio (12-20); Bilirubin,Total 0.5 mg/dL (0.3-1.2); Blood Urea Nitrogen 8 mg/dL (9-23); Calcium 9.6 mg/dL (8.3-10.6); Calcium (Corrected) 9.6 mg/dL (8.5-10.1); Carbon Dioxide 26.2 mMol/L (20.0-31.0); Chloride 105 mMol/L (98-107); Creatinine (Component) 1.0 mg/dL (0.6-1.3); Estimated Creatinine Clearance 85.9 mL/min (>60); Globulin 2.1 gm/dL (2.3-3.5); Glucose 102 mg/dL (74-106); Lipase 26 U/L (12-53); Magnesium 1.7 mg/dL (1.6-2.6); Osmolality,Calculated 279 (275-295); Potassium 3.8 mMol/L (3.4-5.1); Sodium 141 mMol/L (136-145); Total Protein 7.2 gm/dL (5.7-8.2); Troponin I < 0.002 ng/mL (0.0-0.045); eGFR > 60 See Note
[2025-06-11 11:12] LABS: Bacteria,Urine Rare; Bilirubin,Urine Negative (Negative); Blood,Urine 3+ (Negative); Color,Urine Yellow (Lt Yel-Yel); Culture Indicated,Urine Not Indicated; Glucose, Urine Negative (Negative); Ketones,Urine Trace (Negative); Leukocyte Esterase,Urine Positive (Negative); Nitrite,Urine Negative (Negative); PH,Urine 7.5 (5.0-7.0); Protein,Urine 1+ (Neg - Trace); RBC,Urine 268 /hpf (0-3); Specific Gravity,Urine 1.023 (1.001-1.035); Squamous Epithelial Cell,Urine 22 /hpf (0-5); Urobilinogen,Urine Negative mg/dL (0.0-1.0); WBC,Urine 2 /hpf (0-5)
[2025-06-11 11:15] LABS: Clarity,Urine Hazy (Clear/Hazy)
== END 2025-06-11 13:05 | disposition home or self-care (01) ==
LOC: SERX 12:57
PROVIDERS: Emergency Provider Emergency Medicine; PCP Family Medicine
DX: T83.32XA Displacement of intrauterine contraceptive device, initial encounter (principal); Y76.2 Prosthetic and other implants, materials and accessory obstetric and gynecological devices associated with adverse incidents
CPT/HCPCS: 36415; 74022; 80053; 81001; 83605; 83690; 83735; 84484; 85025; 96372; 99283; J1885; Q0162

== ENCOUNTER 2025-07-13 15:00 | Emergency (ER) | payer MEDICAID, SELFPAY ==
[2025-07-13 16:29] VITALS: BP 150/90; PULSE 86; RESP 18; TEMP 36.6; O2SAT 99; BMI 33.1
--- NOTE | 2025-07-13 16:47 | XR_ITS ---
Examination: Abdomen AP single view Technique: AP portable supine abdomen, single view Exam date and time: July 13, 2025, 1711 hours INDICATIONS: Unknown position intrauterine device FINDINGS: Intrauterine device central upper pelvis satisfactory position Nonobstructive bowel gas pattern. No free air IMPRESSION: Intrauterine device satisfactory position, however, transvaginal pelvic sonography would be the examination of choice for position of the intrauterine device
[2025-07-13 17:26] LABS: Collection Type, Urine Clean Catch
[2025-07-13] MEDS: IBUPROFEN TAB 600 MG TABLET PO (17:30)
[2025-07-13 17:31] LABS: Bilirubin,Urine Negative (Negative); Blood,Urine Negative (Negative); Clarity,Urine Clear (Clear/Hazy); Color,Urine Yellow (Lt Yel-Yel); Glucose, Urine Negative (Negative); Ketones,Urine Negative (Negative); Leukocyte Esterase,Urine Negative (Negative); Nitrite,Urine Negative (Negative); PH,Urine 6.0 (5.0-7.0); Protein,Urine Trace (Neg - Trace); RBC,Urine 3 /hpf (0-3); Specific Gravity,Urine 1.029 (1.001-1.035); Squamous Epithelial Cell,Urine 8 /hpf (0-5); Urobilinogen,Urine Negative mg/dL (0.0-1.0); WBC,Urine 2 /hpf (0-5)
--- NOTE | 2025-07-13 20:10 | PD.EDFMALE ---
ED Female Urogenital RME/HPI General Chief complaint: Urogenital-Female Stated complaint: PELVIC PAIN FROM IUD, URINE INCONTINENCE Time Seen by Provider: 07/13/25 16:04 Source: patient Arrival date/time: 07/13/25 15:00 Mode of arrival: ambulatory Limitations: no limitations RME / HPI RME / HPI Narrative: This patient is a pleasant 24-year-old female who arrives to the ED today for evaluation of IUD concerns for the past month. Patient was seen here several weeks ago for same complaints and advised to follow-up with outpatient OB. Patient states she has had difficulty finding an OB in addition, states she went to her primary care provider who did not refer her to an OB today. Patient denies any fever nausea vomiting. Patient states the IUD was placed in [place] last year. Related Data Previous Rx's ?Medication ?Instructions ?Recorded ondansetron 4 mg disintegrating 4 mg PO Q8H PRN nausea and 02/19/25 tablet vomiting #20 tabs ibuprofen 600 mg tablet 600 mg PO Q6H PRN pain #30 tabs 06/11/25 ondansetron 4 mg disintegrating 4 mg PO Q8H PRN nausea and 06/11/25 tablet vomiting #14 tabs ibuprofen 800 mg tablet (IBU) 800 mg PO Q8H PRN pain #20 tabs 07/13/25 Allergies Allergy/AdvReac Type Severity Reaction Status Date / Time No Known Allergies Allergy Verified 02/19/25 12:29 Review of Systems Review of Systems Systems Reviewed: All systems reviewed, normal except as documented Past Medical History Past Medical History CARDIAC: Negative Cardiac Disorders or Congestive Heart Failure RESPIRATORY: Negative Chronic Obstructive Pulmonary Disease (COPD) or Asthma GASTROINTESTINAL: Positive Gastrointestinal Disorders GENITOURINARY: Positive Kidney Stones; Negative Renal Disease ENDOCRINE: Negative Diabetes Mellitus Type 1 or Diabetes Mellitus Type 2 HEMATOLOGIC: Negative Sickle Cell Disease Social History SMOKING STATUS: Never smoker ED Exam Narrative Physical exam: Patient was mildly uncomfortable due to IUD concerns at time of evaluation. General Limitations: Present no limitations General appearance: Present alert and in distress (Mild discomfort due to pelvic concerns) Head Head exam: Present atraumatic Eye Eye exam: Present normal appearance, PERRL and EOMI ENT ENT exam: Present normal exam, normal oropharynx and mucous membranes moist Neck Neck exam: Present normal inspection, full ROM and trachea midline Chest Chest inspection: Present normal inspection and symmetric chest wall rise Respiratory Respiratory exam: Present normal lung sounds bilaterally Cardiovascular Cardiovascular exam: Present regular rate, normal rhythm and normal heart sounds Abdominal Exam Abdominal exam: Present soft, normal bowel sounds and other (Nonspecific tenderness to palpation over the central pelvic region. No pulsatile masses. No signs of trauma) Extremities Exam Extremities exam: Present normal inspection and full ROM Back Exam Back exam: Present normal inspection and full ROM Neurological Exam Neurological exam: Present alert, oriented X3 and CN II-XII intact Psychiatric Psychiatric exam: Present normal affect and normal mood Skin Skin exam: Present warm, dry, intact and normal color Course Quality Measures none Orders Category Date Time Status KUB [XR abdomen 1V] Stat Exams 07/13/25 16:47 Completed UA [Urinalysis] Stat Lab 07/13/25 17:18 Completed Ibuprofen Tab [Motrin Tab] Med 07/13/25 16:47 Discontinued 600 mg PO X1 ONE As noted above Vital Signs Vital signs: Vital Signs Temperature 97.9 F 07/13/25 16:29 Pulse Rate 86 07/13/25 16:29 Respiratory Rate 18 07/13/25 16:29 Blood Pressure 150/90 H 07/13/25 16:29 Pulse Oximetry (%) 99 07/13/25 16:29 Oxygen Delivery Method Room Air 07/13/25 16:29 As noted above Urogenital - Female MDM Narrative MDM Narrative:: All studies performed in the ED were evaluated by me personally. Urinalysis is unremarkable for any urinary tract infection. Imaging studies confirmed reasonable placement of the patient's IUD. Discussed the case with Dr. [place]. She advised the patient needs to follow-up with her primary care provider and ask for referral to her clinic for long-term management. Patient data External records reviewed:: [facility] previous records Clinical information provided by:: patient Social determinants that could affect healthcare access:: none Patient has the following chronic illnesses:: None How is presenting disease/condition affected by chronic disease/condition?: no chronic disease Evaluation data The following diagnostics were reviewed and interpreted by me:: lab results and radiology exam(s) Lab and/or radiology exams considered but not ordered:: None Interpretation Summary: Unremarkable laboratory and imaging studies. IUD appears properly placed Medications / Prescriptions Medications or Prescriptions considered but not ordered:: None Medication administrations:: Medication Administration History Discontinued Medications Ibuprofen (Ibuprofen Tab 600 Mg Tablet) 600 mg PO X1 ONE Stop: 07/13/25 16:48 Last Admin: 07/13/25 17:30 Dose: 600 mg Documented By: DO As noted above Consultations Consultation(s) initiated? (list below): No Diagnosis Urogenital Female Differential Diagnosis: urinary tract infection Most likely diagnosis given after review of the tests above:: IUD concerns Admission Indicated Admission indicated?: not indicated Explain why admission is indicated or not indicated:: Unwarranted Admission Request Was there a request for admission?: No Disposition Plan Disposition Plan: Discharge Discharge Attestation Discharge Attestation: The patient and all family members were given an opportunity to ask questions and understood the discharge instructions. Discharge instructions specifically effects, indications for sooner follow up or return to the emergency department, and the expected course of current diagnosis. Patient condition: Stable Discharge Plan Plan Patient Disposition: HOME (Self Care) Prescriptions/Referrals Prescriptions/Med Rec: New ibuprofen [IBU] 800 mg tablet 800 mg PO Q8H PRN (Reason: pain) Qty: 20 0RF No Action ibuprofen 600 mg tablet 600 mg PO Q6H PRN (Reason: pain) Qty: 30 0RF ondansetron 4 mg tablet,disintegrating 4 mg PO Q8H PRN (Reason: nausea and vomiting) Qty: 14 0RF ondansetron 4 mg tablet,disintegrating 4 mg PO Q8H PRN (Reason: nausea and vomiting) Qty: 20 0RF Referrals: No Primary/Family,Physician [Primary Care Provider] - In 1 week Problem List Clinical Impression: Uterine pain Patient/Caregiver Discharge Instructions Education Materials: ED Abdominal Pain Unkn Cause Fem Additional Instructions: Advised patient like medication as needed for symptomatic relief. Patient should follow-up with a woman's health clinic or [facility] to aid in evaluation of IUD concerns. Print Language: Citizen [place] Stand Alone Forms: [employer] Info., Patient Portal Info Letter
[2025-07-13 20:28] VITALS: BP 151/89; PULSE 88; RESP 18; TEMP 36.8; O2SAT 99
== END 2025-07-13 20:30 | disposition home or self-care (01) ==
PROVIDERS: Physician Assistant; Emergency Provider Family Medicine
DX: N94.89 Other specified conditions associated with female genital organs and menstrual cycle (principal); Z30.431 Encounter for routine checking of intrauterine contraceptive device
CPT/HCPCS: 74018; 81001; 99283; A9270